=== PATIENT | male | born 1975 | race African-American/Black ===

== ENCOUNTER 2017-06-14 16:13 | Emergency (ER) | payer OTHER ==
--- NOTE | 2017-06-14 16:47 | ED ---
General Adult HPI - General Source: patient, EMS, RN notes reviewed Mode of arrival: EMS Limitations: no limitations <Corey Manley - Last Filed: 06/14/17 18:25> <Milo Delcid - Last Filed: 06/14/17 20:57> - General Chief complaint: Psychiatric Symptoms Stated complaint: Mental health Time Seen by Provider: 06/14/17 16:19 - History of Present Illness Initial comments: Patient's 42-year-old male who presents emergency room today with a chief complaint of suicidal thoughts. He does admit that he did take 3. BuSpar earlier today and then called the suicide hotline. States that he does see a psychiatrist has not seen him recently has had a time getting appointment. Patient states that he did not take any other medications. He does admit to feeling down and depressed at this time. He denies any other complaints or symptoms. Denies any homicidal thoughts or plans. Patient denies any recent fever, chills, shortness of breath, chest pain, back pain, abdominal pain, nausea or vomiting, numbness or tingling, headaches or visual changes, or any other complaints. (Corey Manley) - Related Data Home Medications Medication Instructions Recorded Confirmed traZODone HCL [TraZODone HCl] 1 tab PO HS 12/12/15 06/14/17 Escitalopram [Lexapro] 20 mg PO DAILY 06/14/17 06/14/17 busPIRone HCL 15 mg PO BID 06/14/17 06/14/17 Previous Rx's Medication Instructions Recorded Ibuprofen [Motrin] 600 mg PO Q8HR PRN #20 tab 12/12/15 Allergies Allergy/AdvReac Type Severity Reaction Status Date / Time No Known Allergies Allergy Verified 06/14/17 16:22 Review of Systems ROS Other: All systems not noted in ROS Statement are negative. <Corey Manley - Last Filed: 06/14/17 18:25> ROS Other: All systems not noted in ROS Statement are negative. <Milo Delcid - Last Filed: 06/14/17 20:57> ROS Statement: Those systems with pertinent positive or pertinent negative responses have been documented in the HPI. Past Medical History Past Medical History: No Reported History History of Any Multi-Drug Resistant Organisms: None Reported Past Surgical History: No Surgical Hx Reported Past Psychological History: No Psychological Hx Reported Smoking Status: Current every day smoker Past Alcohol Use History: Occasional Past Drug Use History: Cocaine, Prescription Drug Abuse <Corey Manley - Last Filed: 06/14/17 18:25> General Exam Limitations: no limitations <Corey Manley - Last Filed: 06/14/17 18:25> <Milo Delcid - Last Filed: 06/14/17 20:57> - General Exam Comments Initial Comments: General: The patient is awake and alert, in no distress, and does not appear acutely ill. Eye: Pupils are equal, round and reactive to light, extra-ocular movements are intact. No nystagmus. There is normal conjunctiva bilaterally. No signs of icterus. Ears, nose, mouth and throat: There are moist mucous membranes and no oral lesions. Neck: The neck is supple, there is no tenderness or JVD. Cardiovascular: There is a regular rate and rhythm. No murmur, rub or gallop is appreciated. Respiratory: Lungs are clear to auscultation, respirations are non-labored, breath sounds are equal. No wheezes, stridor, rales, or rhonchi. Musculoskeletal: Normal ROM, no tenderness. Strength 5/5. Sensation intact. Pulses equal bilaterally 2+. Neurological: A&O x 3. CN II-XII intact, There are no obvious motor or sensory deficits. Coordination appears grossly intact. Speech is normal. Skin: Skin is warm and dry and no rashes or lesions are noted. Psychiatric: Cooperative (Corey Manley) Course <Corey Manley - Last Filed: 06/14/17 18:25> <Milo Delcid - Last Filed: 06/14/17 20:57> Vital Signs 06/14/17 16:17 Temperature 99.4 F Pulse Rate 81 Respiratory 18 Rate Blood Pressure 123/81 O2 Sat by Pulse 97 Oximetry - Reevaluation(s) Reevaluation #1: 06/14/17 18:25 Patient's been seen here in the emergency room by [facility]. They've recommended admission for the patient. Patient does qualify to be transferred to [facility]. Blood work currently pending at this time. (Corey Manley) Medical Decision Making - Lab Data Result diagrams: 06/14/17 17:35 02/15/18 17:35 <Corey Manley Last Filed: 06/14/17 18:25> - Lab Data Result diagrams: 06/14/17 17:35 06/14/17 17:35 <Sixto Delcide - Last Filed: 06/14/17 20:57> - Lab Data Lab Results 06/14/17 06/14/17 06/14/17 Range/Units 16:50 16:50 17:35 WBC 6.6 (3.8-10.6) k/uL RBC 4.31 (4.30-5.90) m/uL Hgb 13.1 (13.0-17.5) gm/dL Hct 42.1 (39.0-53.0) % MCV 97.7 (80.0-100.0) fL MCH 30.4 (25.0-35.0) pg MCHC 31.1 (31.0-37.0) g/dL RDW 11.9 (11.5-15.5) % Plt Count 181 (150-450) k/uL Neutrophils % 73 % Lymphocytes % 17 % Monocytes % 7 % Eosinophils % 1 % Basophils % 0 % Neutrophils # 4.8 (1.3-7.7) k/uL Lymphocytes # 1.1 (1.0-4.8) k/uL Monocytes # 0.5 (0-1.0) k/uL Eosinophils # 0.1 (0-0.7) k/uL Basophils # 0.0 (0-0.2) k/uL Sodium (137-145) mmol/L Potassium (3.5-5.1) mmol/L Chloride (98-107) mmol/L Carbon Dioxide (22-30) mmol/L Anion Gap mmol/L BUN (9-20) mg/dL Creatinine (0.66-1.25) mg/dL Est GFR (MDRD) Af Amer (>60 ml/min/1.73 sqM) Est GFR (MDRD) Non-Af (>60 ml/min/1.73 sqM) Glucose (74-99) mg/dL Calcium (8.4-10.2) mg/dL Total Bilirubin (0.2-1.3) mg/dL AST (17-59) U/L ALT (21-72) U/L Alkaline Phosphatase (38-126) U/L Total Protein (6.3-8.2) g/dL Albumin (3.5-5.0) g/dL Urine Color Yellow Urine Appearance Clear (Clear) Urine pH 6.0 (5.0-8.0) Ur Specific [place] 1.027 (1.001-1.035) Urine Protein 1+ H (Negative) Urine Glucose (UA) Negative (Negative) Urine Ketones 1+ H (Negative) Urine Blood Negative (Negative) Urine Nitrite Negative (Negative) Urine Bilirubin Negative (Negative) Urine Urobilinogen 3.0 (<2.0) mg/dL Ur Leukocyte Esterase Negative (Negative) Urine RBC 1 (0-5) /hpf Urine WBC 1 (0-5) /hpf Urine Bacteria Rare H (None) /hpf Urine Mucus Few H (None) /hpf Urine Opiates Screen Not Detected (NotDetected) Ur Oxycodone Screen Not Detected (NotDetected) Urine Methadone Screen Not Detected (NotDetected) Ur Propoxyphene Screen Not Detected (NotDetected) Ur Barbiturates Screen Not Detected (NotDetected) U Tricyclic Antidepress Not Detected (NotDetected) Ur Phencyclidine Scrn Not Detected (NotDetected) Ur Amphetamines Screen Not Detected (NotDetected) U Methamphetamines Scrn Not Detected (NotDetected) U Benzodiazepines Scrn Not Detected (NotDetected) Urine Cocaine Screen Detected H (NotDetected) U Marijuana (THC) Screen Detected H (NotDetected) 06/14/17 Range/Units 17:35 WBC (3.8-10.6) k/uL RBC (4.30-5.90) m/uL Hgb (13.0-17.5) gm/dL Hct (39.0-53.0) % MCV (80.0-100.0) fL MCH (25.0-35.0) pg MCHC (31.0-37.0) g/dL RDW (11.5-15.5) % Plt Count (150-450) k/uL Neutrophils % % Lymphocytes % % Monocytes % % Eosinophils % % Basophils % % Neutrophils # (1.3-7.7) k/uL Lymphocytes # (1.0-4.8) k/uL Monocytes # (0-1.0) k/uL Eosinophils # (0-0.7) k/uL Basophils # (0-0.2) k/uL Sodium 141 (137-145) mmol/L Potassium 3.7 (3.5-5.1) mmol/L Chloride 103 (98-107) mmol/L Carbon Dioxide 29 (22-30) mmol/L Anion Gap 9 mmol/L BUN 15 (9-20) mg/dL Creatinine 1.00 (0.66-1.25) mg/dL Est GFR (MDRD) Af Amer >60 (>60 ml/min/1.73 sqM) Est GFR (MDRD) Non-Af >60 (>60 ml/min/1.73 sqM) Glucose 63 L (74-99) mg/dL Calcium 9.4 (8.4-10.2) mg/dL Total Bilirubin 0.6 (0.2-1.3) mg/dL AST 21 (17-59) U/L ALT 24 (21-72) U/L Alkaline Phosphatase 59 (38-126) U/L Total Protein 6.6 (6.3-8.2) g/dL Albumin 4.0 (3.5-5.0) g/dL Urine Color Urine Appearance (Clear) Urine pH (5.0-8.0) Ur Specific [place] (1.001-1.035) Urine Protein (Negative) Urine Glucose (UA) (Negative) Urine Ketones (Negative) Urine Blood (Negative) Urine Nitrite (Negative) Urine Bilirubin (Negative) Urine Urobilinogen (<2.0) mg/dL Ur Leukocyte Esterase (Negative) Urine RBC (0-5) /hpf Urine WBC (0-5) /hpf Urine Bacteria (None) /hpf Urine Mucus (None) /hpf Urine Opiates Screen (NotDetected) Ur Oxycodone Screen (NotDetected) Urine Methadone Screen (NotDetected) Ur Propoxyphene Screen (NotDetected) Ur Barbiturates Screen (NotDetected) U Tricyclic Antidepress (NotDetected) Ur Phencyclidine Scrn (NotDetected) Ur Amphetamines Screen (NotDetected) U Methamphetamines Scrn (NotDetected) U Benzodiazepines Scrn (NotDetected) Urine Cocaine Screen (NotDetected) U Marijuana (THC) Screen (NotDetected) Disposition <Corey Manley - Last Filed: 06/14/17 18:25> Time of Disposition: 20:57 <Milo Delcid - Last Filed: 06/14/17 20:57> Clinical Impression: Depression, Suicidal ideation, Cocaine abuse Disposition: TRANSFER TO PSYCH HOSP/UNIT Referrals: None,Stated [Primary Care Provider] - 1-2 days
[2017-06-14 17:07] LABS: Amphetamine Screen,Urine Not Detected (NotDetected); Barbiturate Screen,Urine Not Detected (NotDetected); Benzodiazepines Screen,Urine Not Detected (NotDetected); Cocaine Screen,Urine Detected (NotDetected); Methadone Screen, Urine Not Detected (NotDetected); Opiate Screen,Urine Not Detected (NotDetected); Oxycodone Screen, Urine Not Detected (NotDetected); Phencyclidine Screen,Urine Not Detected (NotDetected); Tricyclic Antidepressant,Urine Not Detected (NotDetected); Urn Cannabinoid Scrn Detected (NotDetected)
[2017-06-14 18:06] LABS: Basophils % (A) 0 %; Eosinophils # (A) 0.1 k/uL (0-0.7); Eosinophils % (A) 1 %; HCT 42.1 % (39.0-53.0); HGB 13.1 gm/dL (13.0-17.5); Lymphocytes # (A) 1.1 k/uL (1.0-4.8); Lymphocytes % (A) 17 %; MCH 30.4 pg (25.0-35.0); MCHC 31.1 g/dL (31.0-37.0); MCV 97.7 fL (80.0-100.0); Mean Platelet Volume 9.5; Monocytes # (A) 0.5 k/uL (0-1.0); Monocytes % (A) 7 %; Neutrophils # (A) 4.8 k/uL (1.3-7.7); Neutrophils % (A) 73 %; Platelet Count 181 k/uL (150-450); RBC 4.31 m/uL (4.30-5.90); RDW 11.9 % (11.5-15.5); WBC 6.6 k/uL (3.8-10.6)
[2017-06-14 18:09] LABS: Appearance,Urine Clear (Clear); Bacteria,Urine Rare /hpf; Bilirubin,Urine Negative (Negative); Blood,Urine Negative (Negative); Color,Urine Yellow; Glucose,Urine (UA) Negative (Negative); Ketones,Urine 1+ (Negative); Leukocyte Esterase,Urine Negative (Negative); Mucus,Urine Few /hpf; Nitrite,Urine Negative (Negative); Protein,Urine 1+ (Negative); RBC,Urine 1 /hpf (0-5); Specific Gravity,Urine 1.027 (1.001-1.035); WBC,Urine 1 /hpf (0-5)
[2017-06-14 18:17] LABS: ALT 24 U/L (21-72); AST 21 U/L (17-59); Alkaline Phosphatase 59 U/L (38-126); Anion Gap 9 mmol/L; Blood Urea Nitrogen 15 mg/dL (9-20); Calcium 9.4 mg/dL (8.4-10.2); Carbon Dioxide 29 mmol/L (22-30); Chloride 103 mmol/L (98-107); Glucose 63 mg/dL (74-99); Potassium 3.7 mmol/L (3.5-5.1); Sodium 141 mmol/L (137-145); Total Bilirubin 0.6 mg/dL (0.2-1.3); Total Protein 6.6 g/dL (6.3-8.2)
[2017-06-15 07:14] VITALS: RESP 18; TEMP 98.5
[2017-06-15 08:39] VITALS: BP 106/63; PULSE 71
== END 2017-06-15 08:39 ==
LOC: EC 16:13
DX: F32.9 Major depressive disorder, single episode, unspecified (principal); F14.10 Cocaine abuse, uncomplicated; R45.851 Suicidal ideations; F17.200 Nicotine dependence, unspecified, uncomplicated; Z79.899 Other long term (current) drug therapy
CPT/HCPCS: 36415; 80053; 80306; 81001; 82075; 85025; 99285

== ENCOUNTER 2018-01-16 11:20 | Emergency (ER) | payer OTHER ==
--- NOTE | 2018-01-16 11:53 | ED ---
General Adult HPI - General Chief complaint: Psychiatric Symptoms Stated complaint: Mental health Time Seen by Provider: 01/16/18 11:25 Source: patient, police, RN notes reviewed Mode of arrival: ambulatory Limitations: no limitations - History of Present Illness Initial comments: This is a 42-year-old male who presents emergency department stating that he is suicidal. Patient states he wants to cut his wrists. Patient states he started having thoughts 2 days when he seemed to progress. Patient states he does cocaine still his last time he did cocaine was yesterday. Patient states that he gets depressed when he stops using cocaine. Patient denies any drinking. Patient denies any other drug use. Patient denies any physical complaints today. Patient denies headache patient denies numbness weakness. Patient denies lightheadedness dizziness or near syncopal episode. Patient denies chest pain difficulty breathing or shortness of breath. Patient denies any palpitations. Patient denies abdominal pain patient denies nausea vomiting diarrhea. Patient denies any recent fever chills or cough. Patient denies any recent injury or trauma. - Related Data Home Medications Medication Instructions Recorded Confirmed traZODone HCL [TraZODone HCl] 1 tab PO HS 12/12/15 01/16/18 Escitalopram [Lexapro] 20 mg PO DAILY 06/14/17 01/16/18 Acetaminophen [Tylenol Extra 500 mg PO QID PRN 01/16/18 01/16/18 Strength] Donepezil [Aricept] 5 mg PO HS 01/16/18 01/16/18 Ibuprofen 800 mg PO BID PRN 01/16/18 01/16/18 Nicotine 14Mg/24Hr Patch [Habitrol 1 patch TRANSDERM DAILY 01/16/18 01/16/18 14Mg/24Hr Patch] busPIRone HCl [Buspar] 20 mg PO BID 01/16/18 01/16/18 Allergies Allergy/AdvReac Type Severity Reaction Status Date / Time No Known Allergies Allergy Verified 01/16/18 12:23 Review of Systems ROS Statement: Those systems with pertinent positive or pertinent negative responses have been documented in the HPI. ROS Other: All systems not noted in ROS Statement are negative. Past Medical History Past Medical History: No Reported History History of Any Multi-Drug Resistant Organisms: None Reported Past Surgical History: No Surgical Hx Reported Past Psychological History: Anxiety, Depression Smoking Status: Current some day smoker Past Alcohol Use History: Occasional Past Drug Use History: Cocaine General Exam - General Exam Comments Initial Comments: GENERAL: Patient is well-developed and well-nourished. Patient is nontoxic and well- hydrated and is in no acute distress. ENT: Neck is soft and supple. No significant lymphadenopathy is noted. Oropharynx is clear. Moist mucous membranes. Neck has full range of motion without eliciting any pain. EYES: The sclera were anicteric and conjunctiva were pink and moist. Extraocular movements were intact and pupils were equal round and reactive to light. Eyelids were unremarkable. PULMONARY: Unlabored respirations. Good breath sounds bilaterally. No audible rales rhonchi or wheezing was noted. CARDIOVASCULAR: There is a regular rate and rhythm without any murmurs gallops or rubs. ABDOMEN: Soft and nontender with normal bowel sounds. No palpable organomegaly was noted. There is no palpable pulsatile mass. SKIN: Skin is clear with no lesions or rashes and otherwise unremarkable. NEUROLOGIC: Patient is alert and oriented x3. Cranial nerves II through XII are grossly intact. Motor and sensory are also intact. Normal speech, volume and content. Symmetrical smile. MUSCULOSKELETAL: Normal extremities with adequate strength and full range of motion. LYMPHATICS: No significant lymphadenopathy is noted PSYCHIATRIC: Patient states he suicidal would like to cut his wrists. Limitations: no limitations Course Vital Signs 01/16/18 11:22 Temperature 98.2 F Pulse Rate 89 Respiratory 20 Rate Blood Pressure 113/79 O2 Sat by Pulse 98 Oximetry Medical Decision Making - Medical Decision Making [facility] came and evaluated the patient and spoke with the psychiatrist it was determined that the patient could safely go home. Patient was in agreement with this at this time. Disposition Clinical Impression: Cocaine abuse, Situational depression Disposition: HOME SELF-CARE Condition: Good Instructions: Cocaine Abuse (ED), Depression (ED) Is patient prescribed a controlled substance at d/c from ED?: No Referrals: None,Stated [Primary Care Provider] - 1-2 days Time of Disposition: 14:56
[2018-01-16 15:45] VITALS: BP 117/61; PULSE 85; RESP 18; TEMP 97.8
== END 2018-01-16 15:36 | disposition home or self-care (01) ==
LOC: EC 11:20
DX: F43.21 Adjustment disorder with depressed mood (principal); F14.10 Cocaine abuse, uncomplicated; R45.851 Suicidal ideations; F41.9 Anxiety disorder, unspecified; F17.200 Nicotine dependence, unspecified, uncomplicated; Z79.899 Other long term (current) drug therapy
CPT/HCPCS: 99284

== ENCOUNTER 2023-12-09 13:26 | Emergency (ER) | payer OTHER ==
[2023-12-09] MEDS ORDERED: ACETAMINOPHEN TAB 500 MG TAB ONE (13:51)
[2023-12-09] MEDS ORDERED: IBUPROFEN 600 MG TAB PO ONE (13:51)
--- NOTE | 2024-01-10 18:16 | CT ---
[id number] DIGNA DENG : 1975 EXAM: CT facial bones without contrast. DATE: 12/09/2023 19:09 INDICATION: Pain HIT WITH BASKETBALL LEFT SIDE OF FACE DLP:384 NO CONTRAST COMPARISON: None, please note PACS downtime occurred during the radiologist interpretation of these i mages with limited priors/reports. TECHNIQUE: Multiple unenhanced axial CT images were obtained of the facial bones soft tissue and bone windows. Coronal, axial and sagittal reformatted images were also provided in soft tissue and bone windows and submitted for interpretation. One or more CT dose reduction strategies were utilized during this examination. Total DLP was 384 mG ycm. FINDINGS: There is no evidence of fracture, subluxation, dislocation, or significant soft tissue swelling. The orbital contents are unremarkable. The temporal-mandibular joints appear symmetric. The visualized po rtion of the paranasal sinuses appear clear. IMPRESSION: Motion limited exam no evidence of fracture.
== END 2023-12-09 18:41 | disposition home or self-care (01) ==
LOC: EC 13:26
CPT/HCPCS: 70486; 99283

== ENCOUNTER 2023-12-28 13:57 | Emergency (ER) | payer OTHER ==
--- NOTE | 2023-12-28 15:00 | ED ---
General Adult HPI - General Chief complaint: Psychiatric Symptoms Stated complaint: Anxiety Time Seen by Provider: 12/28/23 13:59 Source: EMS Mode of arrival: EMS Limitations: no limitations - History of Present Illness Initial comments: Patient presents from [facility] where he is currently undergoing treatment for cocaine and meth abuse. Last use was November 28. Patient states that he also used alcohol frequently last use was December 02 and has never gone through alcohol withdrawal. Patient was sent here by therapist at [facility] due to paranoia. Patient states he has a history of PTSD and sometimes experiences paranoia due to this, worse today than normal. Patient endorses irritability and feeling like he wants to hurt people or himself for no specific reason. He states that he would never act on these thoughts. Denies chest pain, JOSEPH, abdominal pain, headache, numbness, weakness. Of note patient also notes abdominal distention. He states this has been ongoing for a year. Has a history of constipation however he does have bowel movements twice a day and takes MiraLAX. Intermittent nausea but no vomiting. Patient denies nausea at this time. Denies abdominal pain, hematochezia, melena. - Related Data Home Medications Medication Instructions Recorded Confirmed Cholecalciferol (Vitamin D3) 50 mcg PO DAILY 12/28/23 12/28/23 [Vitamin D3 (50 Mcg = 2000 Iu)] Docusate [Colace] 100 mg PO BID PRN 12/28/23 12/28/23 Folic Acid 1 mg PO DAILY 12/28/23 12/28/23 Ibuprofen [Motrin Ib] 600 mg PO Q6H PRN 12/28/23 12/28/23 Mag Hydrox/Aluminum Hyd/Simeth 30 ml PO Q4H PRN 12/28/23 12/28/23 [Mylanta Maximum Strength Liq] Magnesium Hydroxide [Milk of 2,400 mg PO BID PRN 12/28/23 12/28/23 Magnesia] Mirtazapine [Remeron] 7.5 mg PO HS 12/28/23 12/28/23 Multivitamins, Thera [Multivitamin 1 tab PO DAILY 12/28/23 12/28/23 (formulary)] QUEtiapine [SEROquel] 200 mg PO HS 12/28/23 12/28/23 Sertraline [Zoloft] 200 mg PO DAILY 12/28/23 12/28/23 Thiamine [Vitamin B-1] 100 mg PO DAILY 12/28/23 12/28/23 busPIRone HCL 15 mg PO BID 12/28/23 12/28/23 Allergies Allergy/AdvReac Type Severity Reaction Status Date / Time egg AdvReac Vomiting Verified 12/28/23 14:48 Milk Containing Products AdvReac Vomiting Verified 12/28/23 14:48 (Dairy) Review of Systems ROS Statement: Those systems with pertinent positive or pertinent negative responses have been documented in the HPI. ROS Other: All systems not noted in ROS Statement are negative. Past Medical History Past Medical History: No Reported History History of Any Multi-Drug Resistant Organisms: None Reported Past Surgical History: No Surgical Hx Reported Past Psychological History: Anxiety, Depression, PTSD Smoking Status: Current some day smoker Past Alcohol Use History: Occasional Past Drug Use History: Cocaine, Marijuana, Methamphetamine General Exam - General Exam Comments Initial Comments: PE: CONSTITUTIONAL: No apparent distress, well appearing, sleeping comfortably SKIN: Warm, dry, no jaundice, hives or petechiae EYES: Pupils are equally round, extraocular movements intact without nystagmus, clear conjunctiva, non-icteric sclera HENT: Normocephalic, atraumatic, moist mucus membranes, oropharynx clear without exudates NECK: , Full range of motion, normal appearance, no thyromegaly PULMONARY: Clear to auscultation without wheezes, rhonchi, or rales, normal excursion, no accessory muscle use and no stridor CARDIOVASCULAR: Regular rate, rhythm, normal S1 and S2. No appreciated murmurs, rubs or gallops. Strong radial pulses with intact distal perfusion. No lower extremity edema GASTROINTESTINAL: Soft, non-tender, distended, no palpable masses, no rebound or guarding. No hepatosplenomegaly MUSCULOSKELETAL: Extremities have no gross deformity, no edema, redness, or swelling. No calf swelling ot TTP. NEUROLOGIC:_a/o x 3, GCS 15, normal mentation and speech. Moves all extremities x 4 without motor or sensory deficit PSYCHIATRIC:_guarded mood and affect, thought process is clear and linear, states he is having thoughts of wanting to harm others and himself for no reason, but states would never act on these thoughts, endorses vague hallucinations, seeing objects on the floor, does not appear to be responding to internal stimuli, calm and cooperative Limitations: no limitations Course Vital Signs 12/28/23 12/29/23 12/29/23 14:17 04:14 14:55 Temperature 98.4 F 97.8 F 98.7 F Pulse Rate 68 60 71 Respiratory 16 15 18 Rate Blood Pressure 117/74 114/74 117/81 O2 Sat by Pulse 94 L 97 99 Oximetry 12/29/23 12/29/23 12/30/23 18:00 23:00 03:04 Temperature Pulse Rate 68 64 71 Respiratory 16 18 20 Rate Blood Pressure 126/80 124/68 122/74 O2 Sat by Pulse 97 98 96 Oximetry 12/30/23 12/30/23 12/30/23 10:20 12:15 19:20 Temperature 98.4 F 98.3 F Pulse Rate 67 70 73 Respiratory 16 18 16 Rate Blood Pressure 109/69 108/69 117/71 O2 Sat by Pulse 98 96 97 Oximetry Medical Decision Making - Medical Decision Making Was pt. sent in by a medical professional or institution (, PA, [facility], urgent care, hospital, or senior living...) When possible be specific @ -Patient sent by [facility] Therapist with petition stating patient having symptoms of paranoia, no psychiatrist on staff at [facility] Currently Did you speak to anyone other than the patient for history (EMS, parent, family, police, friend...)? What history was obtained from this source @ -No Did you review nursing and triage notes (agree or disagree)? Why? @ -I reviewed and agree with nursing and triage notes Were old charts reviewed (outside hosp., previous admission, EMS record, old EKG, old radiological studies, urgent care reports/EKG's, senior living records)? Report findings @ -No records available for review since 2015 Differential Diagnosis (chest pain, altered mental status, abdominal pain women, abdominal pain men, vaginal bleeding, weakness, fever, dyspnea, syncope, headache, dizziness, GI bleed, back pain, seizure, CVA, palpatations, mental health, musculoskeletal)? @ -Differential Mental Health Depression, anxiety, bipolar, psychosis, schizophrenia, adjustment disorder, behavioral disorder, substance withdrawal, PTSD, medication reaction, hypothyroidism, .... This is not meant to be all-inclusive list EKG interpreted by me (3pts min.). @ -None performed X-rays interpreted by me (1pt min.). @ -None done CT interpreted by me (1pt min.). @ -No evidence of perforation, obstruction or other acute process U/S interpreted by me (1pt. min.). @ -None done What testing was considered but not performed or refused? (CT, X-rays, U/S, labs)? Why? @ -None What meds were considered but not given or refused? Why? @ -None Did you discuss the management of the patient with other professionals (professionals i.e. , PA, [facility] [facility], lab, RT, psych nurse, social worker clinical, chiropractic teacher, teacher, police booking officer, ed case manager)? Give summary @ -No Was smoking cessation discussed for >3mins.? @ -No Was critical care preformed (if so, how long)? @ -No Were there social determinants of health that impacted care today? How? (Homelessness, low income, unemployed, alcoholism, drug addiction, transportation, low edu. Level, literacy, decrease access to med. care, fdc, rehab)? @ -Alcoholism, drug addiction Was there de-escalation of care discussed even if they declined (Discuss DNR or withdrawal of care, Hospice)? @ -No What co-morbidities impacted this encounter? (DM, HTN, Smoking, COPD, CAD, Cancer, CVA, ARF, Chemo, Hep., AIDS, mental health diagnosis, sleep apnea, morbid obesity)? @ -PTSD Was patient admitted / discharged? Hospital course, mention meds given and route, prescriptions, significant lab abnormalities, going to OR and other pertinent info. @ -Hospital course Patient is a pleasant 48-year-old gentleman past medical history PTSD, cocaine and methamphetamine abuse currently in recovery presenting today from [facility] where he is currently residing for recovery from methamphetamine and cocaine abuse, for evaluation for paranoia. Reviewed petition written by therapist at [facility]. Please see notes above. On my assessment patient is calm and cooperative, sleeping comfortably. He does make poor eye contact and has a guarded affect however is otherwise calm. Endorses thoughts of hurting others or hurting himself that are worse and more persistent than normal, states he would not act on these, does not appear to be responding to internal stimuli, denies new neurologic symptoms such as CRUZ, numbness, weakness. Physical exam otherwise shows a distended but soft abdomen, nontender. Patient states abdominal distention has been ongoing for months now. Due to degree of abdominal distention will obtain UA, CT abdomen, basic labs, additionally TSH, alcohol level, UDS for medical clearance. Patient agreeable with POC. CT without acute process. Labs reassuring. Patient medically cleared, EPS to see. Patient signed out to Dr. Forrester pending EPS evaluation and TSH level. Patient here through 12/30/23. During my shift on 12/30/23, patient calm and cooperative. In NAD. Last assessed by EPS on 12/30/2023 1215, per their note, continued to admit to homicidal ideation and still worries that he would hurt hi s roommate. Dr. Phillip stated that patient does meet criteria for mental health inpatient placement. Patient accepted by Dr. Crenshaw at [facility] at [facility] for transfer. Patient transported to [facility] for further care. Undiagnosed new problem with uncertain prognosis? @ -[No] Drug Therapy requiring intensive monitoring for toxicity (Heparin, Nitro, Insulin, Cardizem)? @ -[No] Were any procedures done? @ -[No] Diagnosis/symptom? @ -[Paranoia, HI Acute, or Chronic, or Acute on Chronic? @ -Acute Uncomplicated (without systemic symptoms) or Complicated (systemic symptoms)? @ -Uncomplicated Side effects of treatment? @ -[No] Exacerbation, Progression, or Severe Exacerbation? @ -Exacerbation Poses a threat to life or bodily function? How? (Chest pain, USA, DE, pneumonia, PE, COPD, DKA, ARF, appy, cholecystitis, CVA, Diverticulitis, Homicidal, Suicidal, threat to staff... and all critical care pts) @ -Yes, if allowed to continue untreated, could result in serious harm to self or public - Lab Data Result diagrams: 12/28/23 15:45 12/28/23 15:45 Lab Results 12/28/23 12/28/23 12/28/23 Range/Units 15:45 15:45 19:30 WBC 5.9 (3.8-10.6) k/uL RBC 3.90 L (4.30-5.90) m/uL Hgb 12.7 L (13.0-17.5) gm/dL Hct 37.9 L (39.0-53.0) % MCV 97.2 (80.0-100.0) fL MCH 32.6 (25.0-35.0) pg MCHC 33.5 (31.0-37.0) g/dL RDW 12.3 (11.5-15.5) % Plt Count 245 (150-450) k/uL MPV 8.8 Neutrophils % 59 % Lymphocytes % 23 % Monocytes % 9 % Eosinophils % 5 % Basophils % 0 % Neutrophils # 3.5 (1.3-7.7) k/uL Lymphocytes # 1.3 (1.0-4.8) k/uL Monocytes # 0.6 (0-1.0) k/uL Eosinophils # 0.3 (0-0.7) k/uL Basophils # 0.0 (0-0.2) k/uL Sodium 139 (137-145) mmol/L Potassium 4.1 (3.5-5.1) mmol/L Chloride 106 (98-107) mmol/L Carbon Dioxide 30 (22-30) mmol/L Anion Gap 3 mmol/L BUN 17 (9-20) mg/dL Creatinine 0.93 (0.66-1.25) mg/dL Est GFR (CKD-EPI)AfAm >90 (>60 ml/min/1.73 sqM) Est GFR (CKD-EPI)NonAf >90 (>60 ml/min/1.73 sqM) Glucose 101 H (74-99) mg/dL POC Glucose (mg/dL) (70-110) mg/dL POC Glu Free Lance Artist ID Calcium 9.5 (8.4-10.2) mg/dL Total Bilirubin 0.4 (0.2-1.3) mg/dL AST 20 (17-59) U/L ALT 17 (4-49) U/L Alkaline Phosphatase 121 (38-126) U/L Total Protein 6.4 (6.3-8.2) g/dL Albumin 3.9 (3.5-5.0) g/dL Amylase 55 (30-110) U/L Lipase 168 (23-300) U/L TSH (0.465-4.680) mIU/L Urine Color Colorless Urine Appearance Clear (Clear) Urine pH 6.5 (5.0-8.0) Ur Specific [place] 1.014 (1.001-1.035) Urine Protein Negative (Negative) Urine Glucose (UA) Negative (Negative) Urine Ketones Negative (Negative) Urine Blood Negative (Negative) Urine Nitrite Negative (Negative) Urine Bilirubin Negative (Negative) Urine Urobilinogen <2.0 (<2.0) mg/dL Ur Leukocyte Esterase Negative (Negative) Salicylates <1.0 mg/dL Urine Opiates Screen Not Detected (NotDetected) Ur Oxycodone Screen Not Detected (NotDetected) Urine Methadone Screen Not Detected (NotDetected) Acetaminophen <10.0 ug/mL Ur Barbiturates Screen Not Detected (NotDetected) U Tricyclic Antidepress Detected H (NotDetected) Ur Phencyclidine Scrn Not Detected (NotDetected) Ur Amphetamines Screen Not Detected (NotDetected) U Methamphetamines Scrn Not Detected (NotDetected) U Benzodiazepines Scrn Not Detected (NotDetected) Urine Cocaine Screen Not Detected (NotDetected) U Marijuana (THC) Screen Not Detected (NotDetected) Serum Alcohol <10 mg/dL Influenza Type A (PCR) (Not Detectd) Influenza Type B (PCR) (Not Detectd) RSV (PCR) (Not Detectd) SARS-CoV-2 (PCR) (Not Detectd) 12/28/23 12/29/23 12/29/23 Range/Units 20:39 00:27 14:54 WBC (3.8-10.6) k/uL RBC (4.30-5.90) m/uL Hgb (13.0-17.5) gm/dL Hct (39.0-53.0) % MCV (80.0-100.0) fL MCH (25.0-35.0) pg MCHC (31.0-37.0) g/dL RDW (11.5-15.5) % Plt Count (150-450) k/uL MPV Neutrophils % % Lymphocytes % % Monocytes % % Eosinophils % % Basophils % % Neutrophils # (1.3-7.7) k/uL Lymphocytes # (1.0-4.8) k/uL Monocytes # (0-1.0) k/uL Eosinophils # (0-0.7) k/uL Basophils # (0-0.2) k/uL Sodium (137-145) mmol/L Potassium (3.5-5.1) mmol/L Chloride (98-107) mmol/L Carbon Dioxide (22-30) mmol/L Anion Gap mmol/L BUN (9-20) mg/dL Creatinine (0.66-1.25) mg/dL Est GFR (CKD-EPI)AfAm (>60 ml/min/1.73 sqM) Est GFR (CKD-EPI)NonAf (>60 ml/min/1.73 sqM) Glucose (74-99) mg/dL POC Glucose (mg/dL) 106 (70-110) mg/dL POC Glu Free Lance Artist ID Alvina Michelle Calcium (8.4-10.2) mg/dL Total Bilirubin (0.2-1.3) mg/dL AST (17-59) U/L ALT (4-49) U/L Alkaline Phosphatase (38-126) U/L Total Protein (6.3-8.2) g/dL Albumin (3.5-5.0) g/dL Amylase (30-110) U/L Lipase (23-300) U/L TSH 1.120 (0.465-4.680) mIU/L Urine Color Urine Appearance (Clear) Urine pH (5.0-8.0) Ur Specific [place] (1.001-1.035) Urine Protein (Negative) Urine Glucose (UA) (Negative) Urine Ketones (Negative) Urine Blood (Negative) Urine Nitrite (Negative) Urine Bilirubin (Negative) Urine Urobilinogen (<2.0) mg/dL Ur Leukocyte Esterase (Negative) Salicylates mg/dL Urine Opiates Screen (NotDetected) Ur Oxycodone Screen (NotDetected) Urine Methadone Screen (NotDetected) Acetaminophen ug/mL Ur Barbiturates Screen (NotDetected) U Tricyclic Antidepress (NotDetected) Ur Phencyclidine Scrn (NotDetected) Ur Amphetamines Screen (NotDetected) U Methamphetamines Scrn (NotDetected) U Benzodiazepines Scrn (NotDetected) Urine Cocaine Screen (NotDetected) U Marijuana (THC) Screen (NotDetected) Serum Alcohol mg/dL Influenza Type A (PCR) Not Detected (Not Detectd) Influenza Type B (PCR) Not Detected (Not Detectd) RSV (PCR) Not Detected (Not Detectd) SARS-CoV-2 (PCR) Not Detected (Not Detectd) Disposition Clinical Impression: Paranoia, Homicidal ideation Disposition: TRANSFER TO PSYCH HOSP/UNIT Condition: Good Referrals: None,Stated [Primary Care Provider] - 1-2 days
--- NOTE | 2023-12-28 15:49 | CT ---
EXAMINATION TYPE: CT abdomen pelvis wo con DATE OF EXAM: 12/28/2023 HISTORY: abdominal pain and distention CT DLP: 536.8 mGycm. Automated Exposure Control for Dose Reduction was Utilized. TECHNIQUE: CT scan of the abdomen and pelvis is performed without oral or IV contrast. COMPARISON: None FINDINGS: Within the limitations of a non-contrast study, the following observations are made. There are mild interstitial changes in the left lung base. There is no gallstone, gallbladder distention, pericholecystic fluid or wall thickening. There is no biliary ductal dilatation. There is no organomegaly involving the liver, pancreas, spleen or adrenal glands. There are no renal calcifications or hydronephrosis. The bowel loops are normal in caliber and there is no dilatation or obstruction. No inflammatory johnston ges identified within the mesentery. There is no free intraperitoneal air or fluid. There is no pelvic mass, free fluid, abscess or adenopathy. The osseous structures are intact. IMPRESSION: No significant abnormality seen.
[2023-12-28 16:02] LABS: Basophils % (A) 0 %; Eosinophils # (A) 0.3 k/uL (0-0.7); Eosinophils % (A) 5 %; HCT 37.9 % (39.0-53.0); HGB 12.7 gm/dL (13.0-17.5); Lymphocytes # (A) 1.3 k/uL (1.0-4.8); Lymphocytes % (A) 23 %; MCH 32.6 pg (25.0-35.0); MCHC 33.5 g/dL (31.0-37.0); MCV 97.2 fL (80.0-100.0); Mean Platelet Volume 8.8; Monocytes # (A) 0.6 k/uL (0-1.0); Monocytes % (A) 9 %; Neutrophils # (A) 3.5 k/uL (1.3-7.7); Neutrophils % (A) 59 %; Platelet Count 245 k/uL (150-450); RDW 12.3 % (11.5-15.5); WBC 5.9 k/uL (3.8-10.6)
[2023-12-28 16:17] LABS: ALT 17 U/L (4-49); AST 20 U/L (17-59); Acetaminophen <10.0 ug/mL; African American GFR (CKD) >90 (>60 ml/min/1.73 sqM); Albumin 3.9 g/dL (3.5-5.0); Alcohol <10 mg/dL; Alkaline Phosphatase 121 U/L (38-126); Amylase 55 U/L (30-110); Anion Gap 3 mmol/L; Blood Urea Nitrogen 17 mg/dL (9-20); Calcium 9.5 mg/dL (8.4-10.2); Carbon Dioxide 30 mmol/L (22-30); Chloride 106 mmol/L (98-107); Glucose 101 mg/dL (74-99); Lipase 168 U/L (23-300); Non-African American GFR(CKD) >90 (>60 ml/min/1.73 sqM); Potassium 4.1 mmol/L (3.5-5.1); Salicylate <1.0 mg/dL; Sodium 139 mmol/L (137-145); Total Bilirubin 0.4 mg/dL (0.2-1.3); Total Protein 6.4 g/dL (6.3-8.2)
[2023-12-28 20:17] LABS: Appearance,Urine Clear (Clear); Bilirubin,Urine Negative (Negative); Blood,Urine Negative (Negative); Color,Urine Colorless; Glucose,Urine (UA) Negative (Negative); Ketones,Urine Negative (Negative); Leukocyte Esterase,Urine Negative (Negative); Nitrite,Urine Negative (Negative); PH, Urine 6.5 (5.0-8.0); Protein,Urine Negative (Negative); Specific Gravity,Urine 1.014 (1.001-1.035); Urobilinogen,Urine <2.0 mg/dL (<2.0)
[2023-12-28 20:31] LABS: Amphetamine Screen,Urine Not Detected (NotDetected); Barbiturate Screen,Urine Not Detected (NotDetected); Benzodiazepines Screen,Urine Not Detected (NotDetected); Cocaine Screen,Urine Not Detected (NotDetected); Methadone Screen, Urine Not Detected (NotDetected); Opiate Screen,Urine Not Detected (NotDetected); Oxycodone Screen, Urine Not Detected (NotDetected); Phencyclidine Screen,Urine Not Detected (NotDetected); Tricyclic Antidepressant,Urine Detected (NotDetected); Urn Cannabinoid Scrn Not Detected (NotDetected)
[2023-12-29 14:58] LABS: Glucose,Whole Blood 106 mg/dL (70-110)
[2023-12-30 19:22] VITALS: BP 117/71; PULSE 73; RESP 16; TEMP 98.3
== END 2023-12-30 19:21 ==
LOC: EC 13:57
DX: F41.0 Panic disorder [episodic paroxysmal anxiety]
CPT/HCPCS: 36415; 74176; 80053; 80143; 80179; 80306; 80320; 81003; 82075; 82150; 83690; 84443; 85025; 87636; 93005; 99285